=== PATIENT | female | born 1940 | race Caucasian/White ===

== ENCOUNTER 2016-09-08 05:15 | Day surgery (SDC) | payer MEDICARE ==
[~2016-09-08] VITALS: Ht 167.6 cm; Wt 104.5 kg
[2016-09-08] VITALS (7 sets, daily range): BP systolic 131–158; BP diastolic 50–79; Ht 167.6 cm; Wt 104.5 kg
[~2016-09-08 05:15] MED LIST: ASPIRIN325 MG PO; LIPITOR20 MG PO; TOPROL XL50 MG PO; ZOLOFT100 MG PO
[2016-09-08] MEDS ORDERED: PLAVIX75 MG PO (06:01)
[2016-09-08] MEDS ORDERED: COZAAR25 MG (06:03)
[2016-09-08] MEDS ORDERED: LOSARTAN POTASS25 MG (06:04)
[2016-09-08] MEDS ORDERED: LIPITOR40 MG PO (06:04)
[2016-09-08 06:33] LABS: HEMOGLOBIN 13.6 g/dL (12-16); MCHC 33.2 g/dL (31.0-37.0); MCV 90.5 fL (80.0-100.0); MEAN PLATELET VOLUME 10.4 fL (7.4-10.4); RBC 4.53 10x6/uL (4.00-5.40); RDW 13.5 % (11.5-14.5)
[2016-09-08 06:47] LABS: APTT 27.5 SECONDS (22.8-39.4); INR 0.98 (0.85-1.17); PROTIME 12.8 SECONDS (11.6-15.0)
[2016-09-08 07:06] LABS: ANION GAP 13.6 mmol/L (8-16); CARBON DIOXIDE 24.5 mmol/L (21.0-32.0); CREATININE - SERUM 0.8 mg/dL (0.6-1.3); POTASSIUM - SERUM 4.1 mmol/L (3.5-5.1)
[2016-09-08] MEDS ORDERED: MOBIC7.5 MG PO (08:35)
[2016-09-08] MEDS ORDERED: COZAAR50 MG PO (08:35)
[2016-09-08] MEDS ORDERED: VOLTAREN75 MG PO (08:36)
[2016-09-08] MEDS ORDERED: OXYBUTYNIN CHLOR5 MG PO (08:36)
--- NOTE | 2016-09-08 09:00 | NUR ---
RECIEVED FROM RR PER BED. IV TO RT WRIST. LT SHOULDER DRSG C/D. SLING TO LT ARM.CM SHOWES SR 1ST DEGREE AV BLOCK RATE 60.
--- NOTE | 2016-09-08 09:20 | NUR ---
DRESSING ON LEFT CHEST INTACT, NO BLEEDING NOTED.
--- NOTE | 2016-09-08 18:45 | NUR ---
WITHOUT CHANGES OR DISTRESS NOTED AT THIS TIME. DENIES NEEDS AT THISD TIME.
[2016-09-09 01:32] VITALS: BP 122/59
[2016-09-09 04:57] VITALS: BP 175/77
--- NOTE | 2016-09-09 07:54 | NUR ---
LT CHEST PACER DRSG C/D. SLING TO LT ARM. SL TO RT WRIST. CM SHOWS SR . ASSESSMENT DONE. DENIES NEEDS.
[2016-09-09 08:38] VITALS: BP 150/79
--- NOTE | 2016-09-09 11:31 | NUR ---
PATIENT SITTING UP IN BED WAITING FOR DISCHARGE.
--- NOTE | 2016-09-09 12:02 | NUR ---
DC GIVEN TO PT
[2016-09-09 12:25] VITALS: BP 159/69
--- NOTE | 2016-09-09 12:30 | NUR ---
DC HOME PER PERSONAL CAR
--- NOTE | 2016-09-11 12:20 | HP ---
PATIENT: BEN OTOOLE MEDICAL RECORD: [id number] ACCOUNT: [id number] LOCATION:D.OPS : 39 ADMISSION DATE: 09/08/16 HISTORY AND PHYSICAL EXAMINATION BEN Oreilly (76yo, F) ID# [id number]. Date/Time09/07/2016 10:29OKVIP79//1939Serplacentia-l[facility] hospit[facility] Dept.NP_[facility] ClinicProviderEDBEVERLEY CIFUENTES MDInsuranceMed Primary: [facility] (MEDICARE REPLACEMENT PPO) Insurance # : [id number] Policy/Group # : [id number] Referring Provider Name : DENNY GREWAL Employer Name : RETIRED Prescription: ORX - Member is eligible. Chief Complaint Followup: Sinus bradycardia Followup: Marked sinus arrhythmia referral from Dr Owens for PPM evaluation Patient's Care Team Referring Provider (): DENNY GREWAL: [address] [place] [phone], , Parboiler: MORGAN OWENS MD Patient's Pharmacies [facility] ([facility]): [address] [place] [phone], , Vitals BP:142/84 sitting R arm 09/07/2016 10:38 am 160/90 sitting L arm 09/07/2016 10:39 amBP Cuff Size:adult 09/07/2016 10:38 am adult 09/07/2016 10:39 amHR:68,reg 09/07/2016 10:39 amHt:5 ft 6 in 09/07/2016 10:45 amWt:30 lbs 09/07/2016 10:45 amNotes:HR has been as low as 37 on waking, last couple of weeks has been 50-60's 09/07/2016 10:40 amBMI:4.8 09/07/2016 10:45 amAllergies Reviewed Allergies CODEINENORVASCMedications Reviewed Medications atorvastatin 20 mg iqbcst24/08/15 filledPRESCRIPTION SOLUTIONSclopidogrel 75 mg wlrkdi52/08/16 filledPRESCRIPTION SOLUTIONSlosartan 100 mg tablet Take 1 tablet(s) every day by oral route.09/07/16 enteredKat Wilsonlosartan 50 mg rngwre71/07/16 filledPRESCRIPTION SOLUTIONSOneTouch Delica Lancets 33 gauge11/23/14 filledPRESCRIPTION SOLUTIONSOneTouch Ultra Test /09/17 filledPRESCRIPTION SOLUTIONSOneTouch Ultra2 kit11/09/14 filledPRESCRIPTION SOLUTIONSOneTouch UltraSoft Etpjtml55/19/15 filledPRESCRIPTION SOLUTIONSoxybutynin chloride 5 mg wzrdec60/20/16 filledPRESCRIPTION SOLUTIONSProblems Reviewed Problems Sinus bradycardia - Onset: 09/06/2016 Marked sinus arrhythmia - Onset: 09/06/2016 evaluate for PPM Family History Discussed Family History Father- Hypertensive disorder ( age: 49) - Cerebrovascular accidentMother- Hypertensive disorder - Malignant neoplastic disease ( age: 65)Brother- Coronary artery bypass graft - Diabetes mellitus - bypass sx; pacemaker - Diabetes mellitus - Diabetes mellitusPaternal Grandfather- HISTORY AND PHYSICAL [id number] BEN OTOOLE Cerebrovascular accidentSister- Diabetes mellitusSocial History Discussed Social History Cardiology Family history of heart disease?: Y Smoking Status: Former smoker (Notes: quit year 2004) High Cholesterol: Y High blood pressure: Y Exercise level: None Overweight: Y Obese: Y Diabetes: Y General stress level: High Alcohol intake: None Diet: Regular Surgical History Reviewed Surgical History Other cataract 2014 heart cath with LAD/Diag stents 08/01/14 partial hysterectomy 1986 breast reduction 1996 [employer]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) Obstetric History Reviewed Obstetric History Past Medical History Discussed Past Medical History Angina: Y Angioplasty (balloon): Y Blurred Vision: Y Chest Pain: Y Cold feet and legs: Y Diabetes: Y Dizzy Spells: Y Eye Problems: Y Heart Disease: Y Heart Rhythm Disorder: Y Hypertension: Y Irregular heart beat: Y Shortness of Breath: Y Swelling of Ankles, Feet or Hands: Y Valve disease: Y Hea dache: (no answer) - hyperlipidimia, coronary artery disease, bradycardia, malaise and fatigue, fluttering heart, dyspnea, chest pain, family with heart disease, leg cramps and weakness, generalized weakness, GERD, upper back pain, varicose veins, Kidney Disease: (no answer) - kidney/bladder problems Documents for Discussion N/A Screening None recorded. HPI HISTORY AND PHYSICAL [id number] BEN OTOOLE Palpitations Reported by patient. Quality: rapid and sustained; slow; irregular; skipping Severity: very limiting Onset/Timing: multiple times per day Context: exertional; at rest; occurs with stress Aggravating Factors: worse with activity; worse with emotional stress Associated Symptoms: dyspnea; exertional dyspnea; decline in exercise capacity; fatigue; irregular and slow arrhythmia noted by patient ROS Patient reports palpitations and light-headed on standing but reports no chest pain, no arm pain on exertion, no shortness of breath when walking, no shortness of breath when lying down, and no known heart murmur. She reports arthralgias/joint pain but reports no muscle aches, no muscle weakness, no back pain, and no swelling in the extremities. She reports no fever, no night sweats, no significant weight gain, no significant weight loss, and no exercise intolerance. She reports no dry eyes, no irri t ation, and no vision change. She reports no difficulty hearing and no ear pain. She reports no frequent nosebleeds and no nose/sinus problems. She reports no sore throat, no bleeding gums, no snoring, no dry mouth, no mouth ulcers, no oral abnormalities, a nd no teeth problems. She reports no jugular vein distension and no swollen glands. She reports no cough, no wheezing, no shortness of breath, and no coughing up blood. She reports no abdominal pain, no vomiting, normal appetite, no diarrhea, not vomiting blood, no nausea, and no constipation. She reports no incontinence, no difficulty urinating, no hematuria, and no increased frequency. She reports no abnormal mole, no jaundice, and no rashes. She reports no loss of consciousness, no weakness, no numbness , no seizures, no dizziness, and no headaches. She reports no depression, no sleep disturbances, feeling safe in relationship, and no alcohol abuse. She reports no fatigue. She reports no swollen glands and no bruising. She reports no runny nose, no sinus pressure, no itching, no hives, and no frequent sneezing. ROS as noted in the HPI Physical Exam Patient is a 76-year-old female. Constitutional: General Appearance healthy-appearing, well developed, and overweight. Level of Distress NAD. Ambulation ambulating normally. Cardiovascular: Apical Impulse not displaced or no thrill. Heart Auscultation normal s1 and s2; no murmurs, rubs, or gallops; and RRR and bradycardia. Arterial Pulses no abdominal aorta bruits, femoral bruits, or popliteal bruits and 2+ keri ateral, carotid 2+ bilateral, femoral 2+ bilateral, popliteal 2+ bilateral, and dorsalis pedis 2+ bilateral. Edema no edema or varicosities. Lungs: Repiratory Effort no dyspnea. Percussion no hyperresonance or dullness or flatness. Auscultation no wheezin g, rhonchi, or rales / crackles and breathing sounds normal, good air movement, and CTA except as noted. Abdomen: Bowl Sounds normal. Inspection and Palpation no tenderness, guarding, masses, or rebound tenderness and soft and non-distended. Liver non-tender and no hepatomegaly. Spleen non-tender and no splenomegaly. Hernia none palpable. Musculoskeletal System: Gait And Stance normal gait and stance. Digits and Nails normal nails and no cyanosis. Neurologic: Cranial Nerves grossly intact. Reflexes DTRs 2+ bilaterally throughout. HISTORY AND PHYSICAL [id number] CARRARA,BEN B Sensation grossly intact. Lymph Nodes: Lymph Nodes no cervical LAD, supraclavicular LAD, axillary LAD, or inguinal LAD. Eyes: Lids and Conjunctivae no discharge or pallor and non-injected. Pupils PERRLA. Cornea grossly intact. EOM EOMI. Lens clear. Sclera non-icteric. Neck: Neck no masses, enlarged lymph nodes, or carotid bruits and supple and trachea midline. Thyroid no enlargement or nodules and non-tender. Skin: Inspection and Palpation no rash, lesions, ulcers, jaundice, or abnormal nevi. Assessment / Plan sick sinus syndrome Symptomatic bradycardia Palpitations 1. Sick sinus syndrome I49.5: Sick sinus syndrome 2. Marked sinus arrhythmia I49.8: Other specified cardiac arrhythmias 3. Sinus bradycardia R00.1: Bradycardia, unspecified Discussion Notes agree with Dr. Owens the patient would benefit from a permanent dual chamber pacing system I have discussed her disease process with her in detail as well as the alternative methods of treatment. We discusse d permanent pacemaker insertion including the expected benefits and risk which included bleeding infection stroke and . There is also a chance pneumothorax. She understands all of the above and wishes to proceed with planned procedure Return to Office to see Stevie Cifuentes MD at [facility] on or around 09/08/2016 Stevie Cifuentes MD for Surgery at [facility]_SURGERY SCHEDULE on 09/08/2016 at 07:30 AM STEVIE CIFUENTES MD at 1220 CC: [id number] DICTATION DATE: 09/07/16 1200 MID LEVEL BUSINESS ANALYST: DM 09/07/16 1334 [facility] 09/09/16 [id number] [place] [address]
--- NOTE | 2016-09-11 12:20 | OP ---
PATIENT NAME: BEN OTOOLE MEDICAL RECORD: [id number] :38 [facility] DATE: SURGEON: VARINDER MARIE MD DATE OF OPERATION: 09/08/2016 SURGEON: Varinder Marie MD ANESTHESIA: General endotracheal, Dr. Adams. OPERATION PERFORMED: Dual chamber pacing system. PREOPERATIVE DIAGNOSIS: Sick sinus syndrome. POSTOPERATIVE DIAGNOSIS: Sick sinus syndrome. INDICATION FOR OPERATION: Sick sinus syndrome, symptomatic bradycardia. FINDINGS OF THE OPERATION: The pulse generator Medtronic Adapta ADDR01, serial number [id number]. Atrial lead: Medtronic model number 4574-45, serial number [id number]. Ventricular lead: Medtronic model number 4074-52, serial number [id number]. LEAD ANALYSIS: Atrial lead threshold 0.3 volts, current lead threshold 0.4 milliamps, resistance 676 ohms. P-wave 4.9, slew rate 2.0. Ventricular lead threshold 0.3 volts, current lead threshold 0.3 milliamps, resistance 1117 ohms, R-wave 14.1. ESTIMATED BLOOD LOSS: Less than 5 cc. DESCRIPTION OF PROCEDURE: After informed consent, adequate preoperative medication evaluation, the patient was brought to the operating room, placed on the table in the supine position. After induction of general anesthesia and application of appropriate monitoring devices, the left chest was prepped and draped in a sterile field, utilizing Betadine scrub, alcohol, and Betadine solution. Betadine-impregnated drape was also used, 1% lidocaine was infiltrated in the left subclavicular space. Incision made and dissection carried down the fascia. Hemostasis maintained with electrocautery. A pacemaker pocket was formed. Subclavian vein was cannulated with the introducers, leads placed in the heart. The above electrophysiologic study was done. The leads were felt to be in good position and the leads were secured. The leads were then connected to the pulse generator and pacemaker placed in the pocket. Pacemaker fired, captured and sensed appropriately. Pocket was irrigated. Instrument count and sponge count were correct times 2. Pocket was closed in layers utilizing 3-0 Vicryl on deep subcutaneous tissue, 5-0 subcuticular Monocryl on the skin. Sterile dressings were applied. The patient tolerated the procedure well and was transferred to postanesthesia recovery in satisfactory condition. TRANSINT:[id number] Voice Confirmation ID: [id number] DOCUMENT ID: [id number] OPERATIVE REPORT [id number] BEN OTOOLE EDWARD MD at 1220 CC: [id number] DICTATION DATE: 09/08/16 0858 DICE SPOTTER: 09/08/16 0919 [facility] 09/09/16 [place] [id number] [place] [id number]
== END 2016-09-09 12:31 | disposition home or self-care (01) ==
LOC: D.M2 05:15 → D.OPS 05:15 → D.M2 09:09 → D.OPS 09-09 12:31
PROVIDERS: Internal Medicine Cardiovascular Disease
DX: I49.5 Sick sinus syndrome (principal); Z87.891 Personal history of nicotine dependence; E66.9 Obesity, unspecified; E11.9 Type 2 diabetes mellitus without complications; E78.00 Pure hypercholesterolemia, unspecified; I10 Essential (primary) hypertension

== ENCOUNTER → 2016-11-03 16:50 | Outpatient (CLI) | payer MEDICARE ==
[2016-09-08 12:51] VITALS: BMI 37.2
[~2016-11-03 16:50] MED LIST changes: +COZAAR25 MG; +COZAAR50 MG PO; +LIPITOR40 MG PO; +LOSARTAN POTASS25 MG; +MOBIC7.5 MG PO; +OXYBUTYNIN CHLOR5 MG PO; +PLAVIX75 MG PO; +VOLTAREN75 MG PO
== END | disposition home or self-care (01) ==
LOC: D.MAMMO 09-07 10:15
DX: Z12.31 Encounter for screening mammogram for malignant neoplasm of breast (principal)

== ENCOUNTER → 2017-06-30 12:38 | Outpatient (CLI) | payer MEDICARE ==
[2016-09-08 12:51] VITALS: BMI 37.2
[2017-06-30 14:00] LABS: BASOPHILS 0.3 % (0-2); EOSINOPHILS 4.1 % (0-7); HEMATOCRIT 44.3 % (36.0-48.0); HEMOGLOBIN 14.7 g/dL (12-16); IMMATURE GRANULOCYTES 0.2 % (0-5); LYMPHOCYTES 35.8 % (15-50); MCH 30.6 pg (26.0-34.0); MCHC 33.2 g/dL (31.0-37.0); MCV 92.3 fL (80.0-100.0); MEAN PLATELET VOLUME 10.4 fL (7.4-10.4); MONOCYTES 10.8 % (2-11); NEUTROPHILS 48.8 % (40-80); RDW 13.6 % (11.5-14.5); WBC 10.1 10x3/uL (4.8-10.8)
[2017-06-30 14:06] LABS: PLATELET COUNT 355 10x3/uL (130-400)
[2017-06-30 14:10] LABS: HEMOGLOBIN A1C 6.4 % (4.8-6.0)
[2017-06-30 14:11] LABS: CALC OSMOLALITY 280 mosm/kg (275-300); CARBON DIOXIDE 24.9 mmol/L (21.0-32.0); CHLORIDE - SERUM 105 mmol/L (98-107); CREATININE - SERUM 0.7 mg/dL (0.6-1.3); GLUCOSE 118 mg/dL (74-106); POTASSIUM - SERUM 3.9 mmol/L (3.5-5.1); SODIUM 140 mmol/L (136-145); UREA NITROGEN 16 mg/dL (7-18); eGFR NON AFRICAN AMERICAN 86 mL/min (90-120)
[2017-06-30 14:28] LABS: APPEARANCE CLEAR (CLEAR); BILIRUBIN NEGATIVE (NEGATIVE); COLOR YELLOW (YELLOW); GLUCOSE NEGATIVE (NEGATIVE); KETONE NEGATIVE (NEGATIVE); NITRITE NEGATIVE (NEGATIVE); PROTEIN NEGATIVE (NEGATIVE); UROBILINOGEN NORMAL (NORMAL)
[2017-06-30 14:30] LABS: RED CELLS - URINE 0-5 /hpf (0-5)
[2017-06-30 14:31] LABS: BACTERIA MODERATE /hpf (NONE SEEN)
[2017-06-30 14:58] LABS: INR 0.86 (0.85-1.17); PROTIME 11.6 SECONDS (11.6-15.0)
== END | disposition home or self-care (01) ==
LOC: D.LAB 12:38
DX: R35.0 Frequency of micturition (principal); N32.81 Overactive bladder

== ENCOUNTER → 2017-11-02 11:00 | Outpatient (CLI) | payer MEDICARE ==
[~2017-11-02] VITALS: Ht 167.6 cm; Wt 111.4 kg
--- NOTE | ~2017-11-02 | HEMODYNAMI ---
PATIENT:BEN OTOOLE MEDICAL RECORD: [id number] : 38 LOCATION:ABIEL ADMISSION DATE: 11/02/17 Generatedon:11/02/201713:37 Patient name: BEN OTOOLE Patient #: [id number] SSN: : 1940 Date of study: 11/02/2017 Page: Of Hemodynamic Procedure Report Patient Data Patient Demographics Procedure consent was obtained First Name: BEN Gender: Female Last Name: SYDNIE : 1940 [facility] Initial: B Age: 77 year(s) Patient #: [id number] Race: Unknown Additional ID: [id number] Contact details Address: [facility] [address] State: [place] City: [place] Zip code: [address] Past Medical History Allergies Allergen Reaction Date Comments Reported Other allergy 11/02/2017 Alba Dumont Admission Admission Data Admission Date: 11/02/2017 Admission Time: 11:00 Height (in.): 66 BSA: 2.11 (m2) Height (cm.): 167.64 BMI: 36.8 (kg/m2) Weight (lbs.): 228 Weight (kg.): 103.42 Lab Results Lab Result Date: 11/02/2017 Lab Result Time: 11:45 Biochemistry Name Units Result Min Max BUN mg/dl 19 --(----)*- 7 18 Creatinine mg/dl 0.6 --(*---)-- 0.6 1.3 CBC Name Units Result Min Max Hematocrit % 45 --(*---)-- 42 54 Hemoglobin g/dl 15.3 --(-*--)-- 13.5 17.5 Procedure Procedure Types Cath Procedure Diagnostic Procedure Sedation Charges Moderate Sedation up to 15 minutes Moderate Sedation up to 30 minutes PCI Procedure Coronary Stent Coronary Stent Initial Procedure Description Procedure Date Procedure Date: 11/02/2017 Procedure Start Time: 13:09 Procedure End Time: 13:35 Procedure Staff Name Function Randolph Carrion MD Performing Physician Nicole ROBLES Monitor yN Messer RN Nurse Cynthia Obregon RT Scrub Procedure Data Cath Procedure Fluoroscopy Diagnostic fluoroscopy Total fluoroscopy Time: 6.5 time: 6.5 min min Diagnostic fluoroscopy Total fluoroscopy dose: 937 dose: 937 mGy mGy Contrast Material Contrast Material Type Amount (ml) Isovue 300 109 Entry Location Entry Primary Successful Side Size Upsize Upsize Entry Closure Succes sful Closure Location (Fr) 1 (Fr) 2 (Fr) Remarks Device Remarks Femoral Right 5 Fr 6 Fr Exoseal artery Short Estimated blood loss: 10 ml Diagnostic catheters Device Type Used For End Catheter Placement MULTIPACK JL 4.0 5Fr Procedure catheter MULTIPACK 3DRC 5Fr Procedure catheter MULTIPACK Pigtail 5 Fr Procedure catheter Procedure Complications No complications Procedure Medications Medication Administration Route Dosage Oxygen NC 2 l/min Lidocaine 2% added to field 20 Heparin Flush Bag added to field 2 bags (1000units/500ml NS) 0.9% NaCl I.V. 100 ml/hr Versed I.V. 1 mg Fentanyl I.V. 50 mcg Versed I.V. 1 mg Fentanyl I.V. 50 mcg Heparin Bolus I.V. 45155 units Versed I.V. 1 mg Plavix P.O. 75 mg Hemodynamics Rest BSA: 2.11 (m2) HGB: 15.3 (g/dl) O2 Consumption: Estimated: 188.02 (ml/min) O2 Co nsumption indexed: Estimated:89.11 (ml/min/m) Heart Rate: 67 (bpm) Pressure Samples Time Site Value (mmHg) Purpose Heart Use Rate(bpm) 13:17 LV 130/-1,20 Snapshot 60 Snapshots Pre Cath Intra NCS Post Cath Vital Signs Time Heart Resp SPO2 etCO2 NIBP (mmHg) Rhythm Pain Sedation Rate (ipm) (%) (mmHg) Status Level (bpm) 12:56:13 64 17 98 0 127/76(104) NSR 0 (11) 10(A) , No pain 13:00:33 92 18 96 0 125/70(102) NSR 0 (11) 10(A) , No pain 13:04:51 60 14 95 0 123/70(100) NSR 0 (11) 9(A) , No pain 13:09:10 59 16 96 0 128/64(104) NSR 0 (11) 9(A) , No pain 13:13:32 60 14 98 0 119/67(100) NSR 0 (11) 9(A) , No pain 13:17:48 59 14 99 0 132/67(102) NSR 0 (11) 9(A) , No pain 13:22:08 60 14 100 0 129/71(101) NSR 0 (11) 9(A) , No pain 13:26:28 60 15 100 0 125/64(101) NSR 0 (11) 9(A) , No pain 13:30:48 59 16 100 0 128/67(103) NSR 0 (11) 10(A) , No pain 13:35:06 60 16 100 0 122/71(103) NSR 0 (11) 10(A) , No pain Medications Time Medication Route Dose Verified Delivered Reason Notes Effectiveness by by 13:00:39 Oxygen NC 2 Randolph Buffie used for l/min Roman Messer RN procedure 13:00:48 Lidocaine 2% added 20ml Randolph Randolph for local to vial Roman Carrion MD anesthetic field 13:00:54 Heparin Flush added 2 bags Randolph Randolph used for Bag to Roman Carrion MD procedure (1000units/500ml field NS) 13:01:02 0.9% NaCl I.V. 100 Randolph Buffie Per physician ml/hr Roman Messer RN 13:01:24 Versed I.V. 1 mg Randolph Buffie for sedation Roman Messer RN 13:01:38 Fentanyl I.V. 50 mcg Randolph Buffie for sedation Roman Messer RN 13:07:33 Versed I.V. 1 mg Randolph Buffie for sedation Roman Messer RN 13:07:37 Fentanyl I.V. 50 mcg Randolph Buffie for sedation Roman Messer RN 13:23:38 Heparin Bolus I.V. 11,000 Randolph Buffie for verif ied units Roman Messer RN anticoagulation with dr carrion 13:27:34 Versed I.V. 1 mg Randolph Buffie for sedation Roman Messer RN 13:33:22 Plavix P.O. 75 mg Randolph Buffie for Roman Messer RN antiplatelet therapy Procedure Log Time Note 12:39:08 Patient Height : 66 inches 12:39:15 Patient Weight : 228 lbs 12:40:02 Diagnostic Cath status Elective 12:40:03 Ny Messer RN sent for patient. Start room use. 12:40:11 Time tracking: Regular hours 12:40:16 Plan of Care:Hemodynamics will remain stable., Cardiac rhythm will remain stable., Comfort level will be maintained., Respiratory function will remain adequate., Patient/ family verbilizes understanding of procedure., Procedure tolerated without complication., Recovers from procedure without complications.. 12:50:00 Patient received from Pre/Post Procedure Room to CCL 2 Alert and oriented. Tansferred to table in Supine position. 12:50:01 Warm blankets applied, and raffy hugger turned on for patient comfort. 12:50:01 Correct patient and procedure confirmed by team. 12:50:03 Signed procedure consent form obtained from patient. 12:50:05 ECG and BP/O2 sat monitors applied to patient. 12:55:09 Vital chart was started 12:55:11 Baseline sample Acquired. 12:55:14 Rhythm: sinus rhythm 12:55:17 Pre-procedure instructions explained to patient. 12:55:17 Pre-op teaching completed and patient verbalized understanding. 12:55:19 Family in waiting room. 12:55:20 Patient NPO since Midnight. 12:55:41 Patient allergic to Other allergyCodeine, Morvasc 12:55:46 Is the patient allergic to Iodine/contrast media? No. 12:55:47 Is patient on blood thinner?Yes 12:55:56 ACC The patient was administered the following blood thiners within the last 24 hours: ACCPlavix 12:56:57 Patient diabetic? No. 12:57:03 Previous problem with sedation/anesthesia? No ? 12:57:04 Snore? Yes 12:57:04 Sleep apnea? Yes 12:57:05 Deviated septum? No 12:57:06 Opens mouth fully? Yes 12:57:06 Sticks out tongue? Yes 12:57:08 Airway obstruction? No ? 12:57:12 Dentures? No ? 12:57:19 Pre procedure: right dorsailis pedis pulse 2+ Normal; easily identifiable; not easily obliterated 12:57:20 Patient pain scale 0/10 ?. 12:57:30 IV patent on arrival in left forearm with 0.9% NaCl at [facility]. 12:58:26 Lab Result : BUN 19 mg/dl 12:58:26 Lab Result : Creatinine 0.6 mg/dl 12:58:26 Lab Result : Hemoglobin 15.3 g/dl 12:58:26 Lab Result : Hematocrit 45 % 12:58:28 Lab results completed and on chart. 12:58:36 Right groin area was prepped with chlora-prep and draped in sterile fashion 12:58:42 Alarms reviewed by R. N. 12:58:42 Sharps counted by scrub and verified by R.N. 12:58:44 Use device set Femoral Dx 12:58:45 ACIST Syringe (49359) opened to sterile field. 12:58:46 Bag Decanter (2002S) opened to sterile field. 12:58:46 Medline Cath Pack ([id number]) opened to sterile field. 12:58:48 Tegaderm 4 x 4 (1626W) opened to sterile field. 12:58:48 ACIST Hand Control (87114) opened to sterile field. 12:58:49 ACIST Manifold (28964) opened to sterile field. 12:58:51 PERCUTANEOUS ENTRY 19GA needle opened to sterile field. 12:58:52 DIAGNOSTIC Multipack 5Fr catheter set (PX1345) opened to sterile field. 12:58:53 SHEATH 5FR [place] (MUS042) opened to sterile field. 12:58:54 DIAGNOSTIC WIRE .035 260cm J wire (174115) opened to sterile field. 12:59:02 Physician arrived 12:59:04 --------ALL STOP TIME OUT------ 12:59:05 Final Timeout: patient, procedure, and site verified with staff and physician. All members of the team are in agreement. 12:59:06 Right groin site verified by team. 12:59:08 Physical assessment completed. ASA score P 2 - A patient with mild systemic disease as per Randolph Carrion MD. 12:59:10 Sedation plan: IV Moderate Sedation Medication:Versed, Fentanyl 13:00:39 Oxygen 2 l/min NC was administered by Ny Messer RN; used for procedure; 13:00:48 Lidocaine 2% 20ml vial added to field was administered by Randolph Carrion MD; for local anesthetic; 13:00:54 Heparin Flush Bag (1000units/500ml NS) 2 bags added to field was administered by Randolph Carrion MD; used for procedure; 13:01:02 0.9% NaCl 100 ml/hr I.V. was administered by Ny Messer RN; Per physician; 13:01:24 Versed 1 mg I.V. was administered by Ny Messer RN; for sedation; 13::38 Fentanyl 50 mcg I.V. was administered by Ny Messer RN; for sedation; 13:07:33 Versed 1 mg I.V. was administered by Ny Messer RN; for sedation; 13:07:37 Fentanyl 50 mcg I.V. was administered by Ny Messer RN; for sedation; 13:08:39 Procedure started. 13:08:39 Full Disclosure recording started 13:09:00 Local anesthetic to right femoral artery with Lidocaine 2% by Randolph Carrion MD.INITIAL ACCESS ONLY 13:10:57 A 5 Fr sheath was inserted into the Right Femoral artery 13:12:11 A MULTIPACK JL 4.0 5Fr catheter was advanced over the wire and used for Procedure. 13:17:27 A MULTIPACK 3DRC 5Fr catheter was advanced over the wire and used for Procedure. 13:17:39 A MULTIPACK Pigtail 5 Fr catheter was advanced over the wire and used for Procedure. 13:18:13 EF : 60 % 13:19:01 Catheter removed. 13:19:15 Proceeding to intervention. 13:19:21 SHEATH 6FR [place] (XOY459) opened to sterile field. 13:19:21 INFLATOR Merit BasixCompak (VV4142) opened to sterile field. 13:19:22 TUBING High Pressure Extension Tubing (Roman) ([id number]) opened to sterile field. 13:19:22 GUIDE 6FR XBLAD 3.5 catheter ([id number]) opened to sterile field. 13:19:42 Sheath upsized to a 6 Fr Short. 13:20:00 6 Fr XBLAD 3.5 guide catheter was inserted over the wire 13:21:06 BMW 300cm Straight [place] 2 wire (0836330) opened to sterile field. 13:21:16 BMW wire advanced. 13:23:38 Heparin Bolus 11,000 units I.V. was administered by Ny Messer RN; for anticoagulation; verified with dr carrion 13:27:34 Versed 1 mg I.V. was administered by Ny Messer RN; for sedation; 13:29:36 Inflation Number: 1 A GERRY OTW 2.5 x 12 stent ([id number]) was prepped and advanced across the Mid LAD. The stent was deployed at 14 BARAK for 0:22 (min:sec). 13:30:32 Inflation number: 2 The stent balloon was then re-inflated across the Mid LAD to 16 BARAK for 0:16 (min:sec). 13:31:16 EXOSEAL 6Fr (EX600) opened to sterile field. 13:31:25 Wire removed. 13:31:26 Stent catheter was removed intact over wire. 13:31:27 Guide catheter removed. 13:31:38 Sheath removed intact; hemostasis achieved with Exoseal to the Right Femoral artery. 13:33:22 Plavix 75 mg P.O. was administered by Ny Messer RN; for antiplatelet therapy; 13:33:22 Procedure ended.(Physican Out) 13:33:32 Fluoroscopy time 06.50 minutes. 13:33:37 Fluoroscopy dose: 937 mGy 13:33:37 Flurop Dose total: 937 13:33:41 Contrast amount:Isovue 300 109ml. 13:33:42 Sharps counted by scrub and verified by R.N. 13:33:44 Insertion/operative site no bleeding no hematoma. 13:33:49 Post right femoral artery:stable 13:33:51 Post Procedure Pulses reassessed and unchanged 13:33:54 Post-procedure physical assessment completed. ASA score P 2 - A patient with mild systemic disease as per Randolph Carrion MD. 13:33:57 Post procedure rhythm: sinus rhythm 13:34:01 Estimated blood loss: 10 ml 13:34:03 Post procedure instruction explained to patient.Patient verbalizes understanding. 13:34:34 Procedure type changed to Cath procedure, Diagnostic procedure, Sedation Charges, Moderate Sedation up to 15 minutes, Moderate Sedation up to 30 minutes, PCI procedure, Coronary Stent, Coronary Stent Initial 13:34:36 Procedure and supply charges have been captured, reviewed, submitted and are correct. 13:35:10 Procedure Complication : No complications 13:35:12 Vital chart was stopped 13:35:15 See physician's report for complete and final results. 13:35:20 Patient transfered to Pre/Post Procedure Room with Stretcher. 13:35:23 Procedure ended. 13:35:23 Full Disclosure recording stopped 13:35:27 End room use (Document Last) Intervention Summary Intervention Notes Time ActionType Lesion and Equipment Action# Pressure Duration Attributes Used 13:29:36 Place stent Mid LAD GERRY OTW 2.5 1 14 00:22 x 12 stent ([id number]) 13:30:32 Reinflate Mid LAD GERRY OTW 2.5 2 16 00:16 stent x 12 stent balloon ([id number]) Device Usage Item Name Manufacture Quantity Catalog Hospital Part Current Minim al Lot# / Number Charge Number Stock Stock Serial# Code ACIST Syringe Acist 1 65640 875717 890068 767477 20 (58928) Medical Systems Inc Bag Decanter Microtek 1 2001S 206128 40817 750734 5 (2001S) Medical Inc. Medline Cath Cardinal 1 [id number] 984354 78474 873216 5 Pack Health ([id number]) Tegaderm 4 x 3M 1 1626W 066521 145019 160078 5 4 (1626W) ACIST Hand Acist 1 31357 879842 374308 416619 5 Control Medical (17614) Systems Inc ACIST Acist 1 35372 289330 626809 583372 5 Manifold Medical (20014) Systems Inc PERCUTANEOUS Cook Medical 1 I67018 779803 515619 5 ENTRY 19GA needle DIAGNOSTIC Cardinal 1 WM2528 904075 68961 976185 30 Multipack 5Fr Health catheter set (PF6256) SHEATH 5FR Terumo 1 QWI932 694142 017052 911592 40 [place] (BCK161) DIAGNOSTIC St Bert 1 864855 376804 156362 067127 30 WIRE .035 260cm J wire (357133) MULTIPACK JL Cardinal 1 092104 5 4.0 5Fr Health catheter MULTIPACK Cardinal 1 852013 5 3DRC 5Fr Health catheter MULTIPACK Cardinal 1 652471 5 Pigtail 5 Fr Health catheter SHEATH 6FR Terumo 1 IRF735 371138 288266 917909 40 [place] (DWT047) INFLATOR Merit 1 UA2720 768360 077689 657703 15 [facility] Medical BasixCompak (CS6411) TUBING High Merit 1 [id number] 520869 53520 707228 10 Pressure Medical Extension Tubing (Carrion) (AS8884Q) GUIDE 6FR Cardinal 1 [id number] 929371 121396 663796 10 XBLAD 3.5 Health catheter (65913132) BMW 300cm Jim 1 3331714 413330 589086 298163 5 Straight Vascular [place] 2 wire (1807771) GERRY OTW 2.5 Medtronic 1 [id number] 306470 05049 176675 5 [id number] x 12 stent ([id number]) EXOSEAL 6Fr Cardinal 1 EX600 436373 487120 219974 10 (EX600) TrustRadius Signature Audit Schurz Stage Time Signature Unsigned Intra-Procedure 11/02/2017 Nicole Tucker 1:37:41 PM RT(R) Signatures Monitor : Nicole Tucker Signature : RT Date : Time : [place] [address] [place] [address]
[~2017-11-02 11:00] MED LIST changes: +BYSTOLIC10 MG PO; +HYDROCHLOROTH12.5 M1 PO; +KRILL OIL 1,001 EAC1 PO; +NEURONTIN 300300 MG PO; +VITAMIN D3400 UNI1 PO
[2017-11-02 11:44] VITALS: BP 148/71; Ht 167.6 cm; Wt 111.4 kg
[2017-11-02 12:04] LABS: CALC OSMOLALITY 276 mosm/kg (275-300); CALCIUM 9.4 mg/dL (8.5-10.1); CARBON DIOXIDE 25.2 mmol/L (21.0-32.0); CHLORIDE - SERUM 103 mmol/L (98-107); CREATININE - SERUM 0.6 mg/dL (0.6-1.3); GLUCOSE 87 mg/dL (74-106); POTASSIUM - SERUM 4.6 mmol/L (3.5-5.1); SODIUM 138 mmol/L (136-145); UREA NITROGEN 19 mg/dL (7-18); eGFR NON AFRICAN AMERICAN > 90 mL/min (90-120)
[2017-11-02 12:09] LABS: BASOPHILS 0.5 % (0-2); EOSINOPHILS 7.2 % (0-7); HEMOGLOBIN 15.3 g/dL (12-16); IMMATURE GRANULOCYTES 0.1 % (0-5); LYMPHOCYTES 34.5 % (15-50); MCH 31.4 pg (26.0-34.0); MCV 92.4 fL (80.0-100.0); MEAN PLATELET VOLUME 10.2 fL (7.4-10.4); MONOCYTES 10.4 % (2-11); NEUTROPHILS 47.3 % (40-80); PLATELET COUNT 339 10x3/uL (130-400); RBC 4.87 10x6/uL (4.00-5.40); RDW 13.3 % (11.5-14.5); WBC 10.2 10x3/uL (4.8-10.8)
== END | disposition home or self-care (01) ==
LOC: D.CATH 10-26 13:00
PROVIDERS: Internal Medicine Cardiovascular Disease
DX: I25.10 Atherosclerotic heart disease of native coronary artery without angina pectoris (principal); R06.02 Shortness of breath; I10 Essential (primary) hypertension; Z01.812 Encounter for preprocedural laboratory examination; E78.5 Hyperlipidemia, unspecified
CPT/HCPCS: 93458; C9600

== ENCOUNTER 2018-03-03 15:30 | Outpatient (CLI) | payer MEDICARE ==
[2017-11-02 11:44] VITALS: BMI 39.6
== END 2018-03-03 15:45 ==
LOC: D.MAMMO 15:30
DX: Z12.31 Encounter for screening mammogram for malignant neoplasm of breast (principal)

== ENCOUNTER 2019-04-09 08:00 | Outpatient (CLI) | payer OTHER ==
[2017-11-02 11:44] VITALS: BMI 39.6
== END 2019-04-09 23:59 | disposition home or self-care (01) ==
LOC: D.MAMMO 08:00
PROVIDERS: ATTEND Family Medicine
DX: Z12.31 Encounter for screening mammogram for malignant neoplasm of breast (principal)

== ENCOUNTER → 2019-07-02 18:21 | Outpatient (CLI) | payer OTHER ==
[2017-11-02 11:44] VITALS: BMI 39.6
== END | disposition home or self-care (01) ==
LOC: D.LABREF 18:21
PROVIDERS: ATTEND Urology
DX: N39.0 Urinary tract infection, site not specified (principal)

== ENCOUNTER → 2019-08-01 17:17 | Outpatient (CLI) | payer OTHER ==
[2017-11-02 11:44] VITALS: BMI 39.6
== END | disposition home or self-care (01) ==
LOC: D.LABREF 17:17
PROVIDERS: ATTEND Urology
DX: N39.0 Urinary tract infection, site not specified (principal)

== ENCOUNTER 2019-09-06 06:13 | Day surgery (SDC) | payer OTHER ==
[2019-09-05 09:18] LABS: BASOPHILS 0.2 % (0-2); EOSINOPHILS 1.8 % (0-7); HEMATOCRIT 44.4 % (36.0-48.0); HEMOGLOBIN 14.6 g/dL (12-16); IMMATURE GRANULOCYTES 0.3 % (0-5); LYMPHOCYTES 20.2 % (15-50); MCH 30.4 pg (26.0-34.0); MCHC 32.9 g/dL (31.0-37.0); MCV 92.5 fL (80.0-100.0); MEAN PLATELET VOLUME 9.4 fL (7.4-10.4); MONOCYTES 14.7 % (2-11); NEUTROPHILS 62.8 % (40-80); PLATELET COUNT 324 10x3/uL (130-400); RDW 13.6 % (11.5-14.5); WBC 11.5 10x3/uL (4.8-10.8)
[2019-09-05 09:20] LABS: ANION GAP 10.3 mmol/L (8-16); CARBON DIOXIDE 30.7 mmol/L (21.0-32.0); CREATININE - SERUM 0.9 mg/dL (0.6-1.3)
[~2019-09-06] VITALS: Ht 167.6 cm; Wt 93.9 kg
[2019-09-06 06:48] VITALS: BP 144/70; Ht 167.6 cm; Wt 93.9 kg
--- NOTE | 2019-09-06 12:53 | NUR ---
1220-ASSISTED TO TOILET TO VOID FREELY.
--- NOTE | 2019-09-06 13:24 | NUR ---
1250-COMPANY WITH STIMULATOR LEFT ROOM. SITTING ON SIDE OF BED FINISHING TRAY. VERY PLEASANT DENIES PAIN. DRESSING TO BACK CDI
--- NOTE | 2019-09-06 13:25 | NUR ---
1300- REMOVED IV FROM LEFT HAND WITH CATH INTACT,DISPOSED INTO SHARPS. COVERED SITE WITH GUAZE,SECURED WITH MEDIPORE TAPE. VSS.DENIES PAIN.
--- NOTE | 2019-09-06 13:26 | NUR ---
1311-PT DRESSED. REVIEWED POST OPERATIVE INSTRUCTIONS AND FOLLOW UP.VERBALIZED UNDERSTANDING.DENIES PAIN,DRESSING CDI
--- NOTE | 2019-09-06 13:27 | NUR ---
1314-ESCORTED OUT VIA W/C WITH DAUGHTER AWAITING TO DRIVE HOME.
--- NOTE | 2019-09-06 17:01 | OP ---
PATIENT NAME: BEN OTOOLE MEDICAL RECORD: [id number] :38 LOCATION:D.OPS ADMISSION DATE: SURGEON: BARB RICHEY MD DATE OF OPERATION: 09/06/2019 SURGEON: Barb Richey MD ANESTHESIA: TIVA by Unique Mckenzie CRNA DIAGNOSES: 1. Urethral stricture. 2. Urge urinary incontinence. 3. Fecal incontinence. 4. Nonfunctional InterStim pacemaker and lead. PROCEDURES: 1. Urethral stricture dilation. 2. Removal of InterStim pacemaker and electrode. 3. Axonics Stage I on the left S3 nerve root. FINDINGS: The old InterStim lead was in the right S4 nerve root. Best responses are found on the left S3 nerve root. SPECIMENS: InterStim pacemaker and lead. ESTIMATED BLOOD LOSS: None. CLINICAL HISTORY: This is an 79-year-old female who has frequent urinary tract infections with Escherichia coli extended-spectrum beta-lactamase positive. She has urge urinary incontinence and fecal incontinence. A while ago, she had an InterStim device placed by another urologist to try to control the incontinence. She had a peripheral nerve evaluation, which was successful; however, when the permanent pacemaker and lead was placed, the device has never worked properly for her. I suspect that the lead is the wrong location and it is not an S3. The plan is to remove the InterStim device and start over with an Axonics stage I. SHE IS ALLERGIC TO NORVASC, CODEINE, MACROBID AND SULFA. She was given Ancef consolidator to the OR. DESCRIPTION OF PROCEDURE: The patient was given IV sedation. She was placed into prone position and prepped and draped. The old InterStim pacemaker site is in the region of the right iliac crest. The incision was reopened after infiltrating the area with 1% lidocaine with epinephrine. The pacemaker device was then removed out of the incision. By tugging on the attached lead, I could see the dimpling in the skin where the lead went into the sacral foramen. The small stab incision was made here and a hemostat was used to pull the tined electrode out from the sacral foramen. The electrode was cut proximal to the tined portion and the electrode was completely removed by pulling the pacemaker out. The pacemaker and electrode were sent to pathology for identification. Under fluoroscopy, the level of the S3 foramen was identified. It was apparent that the location of the previous Medtronic InterStim pacemaker lead was actually in the S4 foramen. The role of sacral foramen was also identified and marked out on the skin using a marking pen. The skin overlying the S2 foramen was infiltrated with local anesthetic. Sacral spinal needles were then introduced into the S3 foramen on both sides. The S3 nerve root on the left side was far more sensitive and we decided to use that. A small incision was OPERATIVE REPORT [id number] BEN OTOLOE made at the skin, at the base of the needle. The stylet of the needle was removed and an extra-long stylet was introduced. The needle was then removed, leaving the extra-long stylet in place. The trocar dilator was then placed down. There was a radiopaque marker on the tip of the sheath. This radiopaque marker was placed at the skilled nursing level between the sacral bones. The extra-long stylet and trocar was then removed, leaving the sheath in place. Through the sheath, we introduced the 4 channel permanent electrode. There was a curve on the proximal end of this electrode and this curve was aimed laterally. Each of the channels was then tested in turn electrically. Channel 0 is not having any biological effect. Channels 1-3; however, had excellent responses. I then marked out 4 cm distal to the iliac crest region on the right side. This resulted in a point that was at some distance from the original Medtronic InterStim pacemaker pocket. A 1 cm transverse incision was made here. The tunneling device was used to bring the free end of the permanent electrode into this area. Here the free end of the permanent electrode was attached to the proximal end of the temporary test electrode. The connection was made using a torque-limiting screwdriver to tighten down the connecting screw. The tunneling device was then used to bring the distal end of the temporary electrode out through an exit site near the midpoint of the sacrum. The wounds were then irrigated out. A 1 cm incision that I made in the right iliac crest region was closed using a running subcuticular suture of 4-0 Monocryl. The small incisions near the sacrum were closed using simple interrupted 4-0 Monocryl. The longer incision for the pacemaker of the Medtronic device was closed using nickolas. Dressings were applied. I will see the patient in followup next week to check on her symptoms. TRANSINT:[id number] Voice Confirmation ID: [id number] DOCUMENT ID: [id number] BARB RICHEY MD at 1701 CC: [id number] DICTATION DATE: 09/06/19 1229 ELECTRICAL CHECKOUT MECHANIC: 09/06/19 1626 [facility] 09/06/19 [place] [id number]
== END 2019-09-06 13:14 | disposition home or self-care (01) ==
LOC: D.OPS 06:13 → D.PAN 08:15 → D.OPS 08:20 → D.PAN 08:20 → D.OPS 09:00
PROVIDERS: Anesthesiology; ATTEND Urology
DX: N35.92 Unspecified urethral stricture, female (principal); N39.41 Urge incontinence; R15.2 Fecal urgency; Z95.0 Presence of cardiac pacemaker; N30.00 Acute cystitis without hematuria; T83.110A Breakdown (mechanical) of urinary electronic stimulator device, initial encounter; I10 Essential (primary) hypertension; I25.119 Atherosclerotic heart disease of native coronary artery with unspecified angina pectoris; I49.8 Other specified cardiac arrhythmias; R06.00 Dyspnea, unspecified

== ENCOUNTER → 2019-09-10 23:55 | Outpatient (CLI) | payer OTHER ==
[2019-09-06 06:48] VITALS: BMI 33.4
[~2019-09-10 23:55] MED LIST changes: +HYDROCODON-ACET15 ML PO; +LEVOFLOXACIN500 MG PO
== END | disposition home or self-care (01) ==
LOC: D.LABREF 23:55
PROVIDERS: ATTEND Urology
DX: R82.90 Unspecified abnormal findings in urine (principal)

== ENCOUNTER 2019-09-13 07:14 | Day surgery (SDC) | payer OTHER ==
[~2019-09-13] VITALS: Ht 167.6 cm; Wt 93.9 kg
[2019-09-13 07:38] LABS: BASOPHILS 0.3 % (0-2); EOSINOPHILS 4.6 % (0-7); HEMATOCRIT 40.4 % (36.0-48.0); HEMOGLOBIN 13.5 g/dL (12-16); IMMATURE GRANULOCYTES 0.3 % (0-5); LYMPHOCYTES 23.2 % (15-50); MCHC 33.4 g/dL (31.0-37.0); MCV 92.9 fL (80.0-100.0); MEAN PLATELET VOLUME 8.7 fL (7.4-10.4); NEUTROPHILS 57.6 % (40-80); RBC 4.35 10x6/uL (4.00-5.40); RDW 13.2 % (11.5-14.5); WBC 9.9 10x3/uL (4.8-10.8)
[2019-09-13 07:46] LABS: PLATELET COUNT 484 10x3/uL (130-400)
[2019-09-13 07:48] LABS: ANION GAP 10.2 mmol/L (8-16); CALCIUM 9.1 mg/dL (8.5-10.1); CREATININE - SERUM 0.9 mg/dL (0.6-1.3); POTASSIUM - SERUM 4.2 mmol/L (3.5-5.1)
[2019-09-13 08:22] VITALS: BP 105/61; Ht 167.6 cm; Wt 93.9 kg
--- NOTE | 2019-09-13 10:00 | NUR ---
0939-REC'D FROM SURGERY. AWAKE AND ALERT,DENIES PAIN.VSS.DRESSING TO BACK CDI. REVIEWED DISCHARGE CRITERIA. VERBALIZED UNDERSTANDING
--- NOTE | 2019-09-13 10:01 | NUR ---
0945-FULL LIQUID TRAY TO ROOM. CL IN EASY REACH. FAMILY AT BEDSIDE. STIMULATOR COMPANY GENTLEMEN IN ROOM
--- NOTE | 2019-09-13 10:20 | NUR ---
1008-AXONICS GENTLEMEN LEFT ROOM. STILL EATING FOOD TRAY.VSS.DENIES PAIN.
--- NOTE | 2019-09-13 10:21 | NUR ---
1018-REMOVED IV WITH CATH INTACT,DISPOSED INTO SHARPS,COVERED SITE WITH GUAZE,SECURED WITH MEDIPORE TAPE. REVIEWED POST OPERATIVE INSTRUCTIONS. VERBALIZED UNDERSTANDING.
--- NOTE | 2019-09-13 10:43 | NUR ---
1025-PT DRESSED AND READY TO GO. ESCORTED OUT VIA W/C BY VOLUNTEER WITH DAUGHTER AWAITING TO DRIVE HOME.
--- NOTE | 2019-09-13 12:29 | OP ---
PATIENT NAME: BEN OTOOLE MEDICAL RECORD: [id number] :38 LOCATION:D.[facility] ADMISSION DATE: SURGEON: BENTLEY RICHEY MD DATE OF OPERATION: 09/13/2019 SURGEON: Bentley Richey MD ANESTHESIA: TIVA by Jacobo Ibrahim CRNA. DIAGNOSES: Urge urinary incontinence, fecal incontinence, recurrent urinary tract infections. PROCEDURE: Axonics stage II. ESTIMATED BLOOD LOSS: None. CLINICAL HISTORY: This is an 79-year-old female with recurrent urinary tract infections with Escherichia coli extended-spectrum beta-lactamase positive. She has issues with urge urinary incontinence and fecal incontinence, which predisposed her to infection. She had an InterStim device placed by another urologist. This device did not work. I discovered that it was placed in the wrong nerve root. When it was removed, it was found to be at the S4 nerve root. She had an Axonics stage I trial in the S3 nerve root on the left side. She had great success with this. She no longer has any episodes of incontinence. She comes now to have the stage II or permanent implant produced. SHE IS ALLERGIC TO CODEINE, MACROBID, NORVASC, AND SULFA. She was given Ancef sexual assault response coordinator to the OR. DESCRIPTION OF PROCEDURE: The patient was given IV sedation. She was placed into a prone position on the OR table. She was prepped and draped. The old incision was reopened in the right iliac crest region. The electrode was fished out of the incision. The connection between the temporary lead and the permanent electrode was disrupted by loosening the connecting screw. The temporary test inspection engineer was then removed entirely. The pacemaker had the connection to the permanent electrode made by tightening down a locking screw using a torque-limiting screwdriver. A pocket was then made lateral to the incision using the blade of an Algolytics retractor. The pacemaker was inserted, so that the ceramic window faces laterally. The wound was then irrigated out with saline. A 2-layer closure was performed. The first layer with 4-0 Vicryl to reapproximate the subcutaneous fat. Then, a running subcuticular suture of 4-0 Monocryl closed the skin incision. Steri-Strips were then applied as well as a Band-Aid. I will see the patient next week to check on the wound healing. TRANSINT:[id number] Voice Confirmation ID: [id number] DOCUMENT ID: [id number] BENTLEY RICHEY MD at 1229 CC: [id number] DICTATION DATE: 09/13/1945 ORACLE SOA CONSULTANT: 09/13/19 1224 [facility] 09/13/19 [place] [id number] [place] [id number]
== END 2019-09-13 10:25 | disposition home or self-care (01) ==
LOC: D.OPS 07:14
PROVIDERS: Anesthesiology; ATTEND Urology
DX: N39.41 Urge incontinence (principal); R15.9 Full incontinence of feces; N39.0 Urinary tract infection, site not specified

== ENCOUNTER 2020-03-12 12:04 | Outpatient (CLI) | payer OTHER ==
[~2020-03-12] VITALS: Ht 167.6 cm; Wt 97.7 kg
--- NOTE | ~2020-03-12 | HEMODYNAMI ---
PATIENT:BEN OTOOLE MEDICAL RECORD: [id number] : 38 LOCATION:[facility] ADMISSION DATE: 03/12/20 Generatedon:03/12/202014:00 Patient name: BEN OTOOLE Patient #: [id number] SSN: : 1940 Date of study: 03/12/2020 Page: Of Hemodynamic Procedure Report Patient Data Patient Demographics Procedure consent was obtained First Name: BEN Gender: Female Last Name: SYDNIE : 1940 [facility] Initial: B Age: 79 year(s) Patient #: [id number] Race: Unknown Additional ID: [id number] Contact details Address: [address] [place] [address] street State: [place] [facility] [place]: [address] Past Medical History Allergies Allergen Reaction Date Comments Reported Other allergy 11/02/2017 Codeine, Morvasc Other allergy 03/12/2020 CODEINE, NITROFURANTOIN, NORVASC, SULFA Admission Admission Data Admission Date: 03/12/2020 Admission Time: 12:04 Arrival Date: 03/12/2020 Arrival Time: 0:00 Height (in.): 66 BSA: 2.07 (m2) Height (cm.): 167.64 BMI: 34.87 (kg/m2) Weight (lbs.): 216.05 Weight (kg.): 98 Lab Results Lab Result Date: 03/12/2020 Lab Result Time: 0:00 Biochemistry Name Units Result Min Max BUN mg/dl 24 --(----)-* 7 18 Creatinine mg/dl 0.9 --(-*--)-- 0.6 1.3 eGFR ml/min 64.04450 *-(----)-- 90 120 NONAFRICAN Procedure Procedure Types Cath Procedure Diagnostic Procedure LHC LHC w/Coronaries Sedation Charges Moderate Sedation up to 15 minutes Procedure Description Procedure Date Procedure Date: 03/12/2020 Procedure Start Time: 13:41 Procedure End Time: 13:56 Procedure Staff Name Function Randolph Owens MD Performing Physician Dolores Griffith RT Scrub Ny Messer RN Nurse Cynthia Obregon RT Monitor Procedure Data Cath Procedure Fluoroscopy Diagnostic fluoroscopy Total fluoroscopy Time: 1.6 time: 1.6 min min Diagnostic fluoroscopy Total fluoroscopy dose: 562 dose: 562 mGy mGy Contrast Material Contrast Material Type Amount (ml) Isovue 300 52 Entry Location Entry Primary Successful Side Size Upsize Upsize Entry Closure Succes sful Closure Location (Fr) 1 (Fr) 2 (Fr) Remarks Device Remarks Femoral Right 5 Fr Exoseal artery Estimated blood loss: 5 ml Diagnostic catheters Device Type Used For End Catheter Placement MULTIPACK JL 4.0 5Fr Left Coronary catheter Angiography MULTIPACK 3DRC 5Fr Right Coronary catheter Angiography MULTIPACK Pigtail 5 Fr LV Angiography catheter Procedure Complications No complications Procedure Medications Medication Administration Route Dosage Oxygen etCO2 Nasal cannula 2 l/min Lidocaine 2% added to field 20 Heparin Flush Bag added to field 2 bags (1000units/500ml NS) 0.9% NaCl I.V. 100 ml/hr Versed I.V. 1 mg Fentanyl I.V. 50 mcg Versed I.V. 1 mg Fentanyl I.V. 50 mcg Versed I.V. 1 mg Hemodynamics Rest BSA: 2.07 (m2) O2 Consumption: Estimated: 186.87 (ml/min) O2 Consumption indexed : Estimated:90.28 (ml/min/m) Heart Rate: 71 (bpm) Pressure Samples Time Site Value (mmHg) Purpose Heart Use Rate(bpm) 13:52 LV 122/0,14 Snapshot 49 Gradients Valve Time Site Site Mean SEP/DFP Peak To Heart Use 1 2 (mmHg) (sec/min) Peak Rate (mmHg) (bpm) Aortic 13:53 LV AO 61 Snapshots Pre Cath Intra NCS Post Cath Vital Signs Time Heart Resp SPO2 etCO2 NIBP (mmHg) Rhythm Pain Sedation Rate (ipm) (%) (mmHg) Status Level (bpm) 13:25:23 60 20 99 26.9 140/74(113) NSR 0 (11) 10(A) , No pain 13:29:47 60 21 100 30.7 126/67(112) NSR 0 (11) 10(A) , No pain 13:34:03 60 19 99 32.9 123/69(103) NSR 0 (11) 10(A) , No pain 13:38:21 60 16 100 33.7 116/59(93) NSR 0 (11) 10(A) , No pain 13:42:39 60 13 97 32.9 109/57(86) NSR 0 (11) 9(A) , No pain 13:46:51 60 11 97 27.7 127/64(93) NSR 0 (11) 9(A) , No pain 13:51:07 61 12 94 23.9 108/63(85) NSR 0 (11) 9(A) , No pain 13:55:17 60 14 98 29.9 126/66(99) NSR 0 (11) 10(A) , No pain Medications Time Medication Route Dose Verified Delivered Reason Notes Eff ectiveness by by 13:27:59 Oxygen etCO2 2 Randolph Buffie used for Nasal l/min Roman Messer RN procedure cannula 13:28:05 Lidocaine 2% added 20ml Randolph Randolph for local to vial Roman Owens MD anesthetic field 13:28:11 Heparin Flush added 2 Randolph Randolph used for Bag to bags Roman Owens MD procedure (1000units/500ml field NS) 13:28:19 0.9% NaCl I.V. 100 Randolph Buffie Per ml/hr Roman Messer RN physician 13:32:08 Versed I.V. 1 mg Randolph Buffie for Roman Messer RN sedation 13:32:14 Fentanyl I.V. 50 Randolph Buffie for anthony Messer RN sedation 13:40:22 Versed I.V. 1 mg Randolph Buffie for Roman Messer RN sedation 13:40:25 Fentanyl I.V. 50 Randolph Buffie for mcg Roman Messer RN sedation 13:46:24 Versed I.V. 1 mg Randolph Buffie for Roman Messer RN sedation Procedure Log Time Note 13:08:03 Informed consent obtained and on chart 13:08:38 Procedure Status Elective Heart Cath (OP). 13:08:39 Time tracking: Regular hours (M-F 7:00 - 5:00) 13:08:47 Plan of Care:Hemodynamics will remain stable., Cardiac rhythm will remain stable., Comfort level will be maintained., Respiratory function will remain adequate., Patient/ family verbilizes understanding of procedure., Procedure tolerated without complication., Recovers from procedure without complications.. 13:08:53 H&P Date Dictated: 02/21/2020 Within 30 days and on chart., H&P Addendum completed by physician on day of procedure. (MUST COMPLETE FOR ALL OUTPATIENTS). 13:09:13 Patient allergic to Other allergyCODEINE, NITROFURANTOIN, NORVASC, SULFA 13:09:37 Patient Weight : 216.05 lbs 13:09:46 Patient Height : 66 inches 13:09:52 Arrival Date: 03/12/2020 12:00:00 AM 13:15:18 Dolores Griffith RT(R) sent for patient. Start room use. 13:18:55 Patient received from Pre/Post Procedure Room to CCL 2 Alert and oriented. Tansferred to table in Supine position. 13:18:58 Warm blankets applied, and raffy hugger turned on for patient comfort. 13:18:59 Correct patient and procedure confirmed by team. 13:18:59 ECG and BP/O2 sat monitors applied to patient. 13:19:04 Pre-procedure instructions explained to patient. 13:19:04 Pre-op teaching completed and patient verbalized understanding. 13:19:06 Family in waiting room. 13:19:07 Patient NPO since Midnight. 13:19:09 Is the patient allergic to Iodine/contrast media? No. 13:19:21 Sleep apnea? Yes 13:19:26 ACC The patient was administered the following blood thiners within the last 24 hours: ACCPlavix 13:19:29 Is patient on blood thinner?Yes 13:19:31 Was the patient premedicated? No 13:19:32 Patient diabetic? No. 13:19:35 If diabetic: On Metformin? N/A 13:19:40 Patient not . Patient is over age 55. 13:19:41 ----Pre-sedation anethsthesia assessment.---- 13:19:44 Previous problem with sedation/anesthesia? No ] 13:19:47 Snore? Unknown 13:19:49 Deviated septum? No 13:19:50 Opens mouth fully? Yes 13:19:51 Sticks out tongue? Yes 13:19:53 Airway obstruction? No ? 13:19:56 Dentures? No ? 13:20:05 Pre procedure: right dorsailis pedis pulse 2+ Normal; easily identifiable; not easily obliterated 13:20:08 Patient pain scale 0/10 ?. 13:20:16 IV patent on arrival in left antecubital with 0.9% NaCl at [facility]. 13:20:20 Lab results completed and on chart. 13::59 Lab Result : BUN 24 mg/dl 13::59 Lab Result : Creatinine 0.9 mg/dl ::59 Lab Result : eGFR NONAFRICAN 64.17723 ml/min 13:24:11 Full Disclosure recording started 13:24:11 Vital chart was started 13:24:29 Stress Test: no; N/A ? 13:24:32 Right groin area was prepped with chlora-prep and draped in sterile fashion 13:24:33 Alarms reviewed by R. N. 13:24:33 Sharps counted by scrub and verified by R.N. 13:24:38 Baseline sample Acquired. 13:24:42 Rhythm: sinus bradycardia 13:24:46 Use device set Femoral Dx 13:24:47 ACIST Syringe (10005) opened to sterile field. 13:24:47 Bag Decanter (2002S) opened to sterile field. 13:24:48 Medline Cath Pack ([id number]) opened to sterile field. 13:24:49 ACIST Hand Control (07780) opened to sterile field. 13:24:50 ACIST Manifold (10293) opened to sterile field. 13:24:50 DIAGNOSTIC Multipack 5Fr catheter set (SN4961) opened to sterile field. 13:24:51 SHEATH 5FR Polaris (KFP768) opened to sterile field. 13:24:52 EMERALD Guide Wire (839-784) opened to sterile field. 13:27:59 Oxygen 2 l/min etCO2 Nasal cannula was administered by Ny Messer RN; used for procedure; Verbal order read back and verified. 13:28:05 Lidocaine 2% 20ml vial added to field was administered by Randolph Owens MD; for local anesthetic; Verbal order read back and verified. 13:28:11 Heparin Flush Bag (1000units/500ml NS) 2 bags added to field was administered by Randolph Owens MD; used for procedure; Verbal order read back and verified. 13:28:19 0.9% NaCl 100 ml/hr I.V. was administered by Ny Messer RN; Per physician; Verbal order read back and verified. ::43 --------ALL STOP TIME OUT------ ::43 Final Timeout: patient, procedure, and site verified with staff and physician. All members of the team are in agreement. 13:31:45 Right groin site verified by team. 13:31:49 Fire Safety Assessment: A--An alcohol-based skin anteseptic being used preoperatively., C--Open oxygen or nitrous oxide is being used., D--An ESU, laser, or fiber-optic light is being used. 13:31:52 Physical assessment completed. ASA score P 2 - A patient with mild systemic disease as per Randolph Owens MD. 13:32:05 2) 60-89 Mildly reduced kidney function, and other findings (as for stage 1) point to kidney disease. 13:32:08 Versed 1 mg I.V. was administered by Ny Messer RN; for sedation; Verbal order read back and verified. 13:32:09 Maximum allowable contrast dose (3.7 X eGFR X 0.75)178 ml. 13:32:13 Sedation plan: IV Moderate Sedation Medication:Versed, Fentanyl 13:32:14 Fentanyl 50 mcg I.V. was administered by Ny Messer RN; for sedation; Verbal order read back and verified. 13:40:22 Versed 1 mg I.V. was administered by Ny Messer RN; for sedation; Verbal order read back and verified. 13:40:25 Fentanyl 50 mcg I.V. was administered by Ny Messer RN; for sedation; Verbal order read back and verified. 13:40:37 Procedure started. 13:41:31 Local anesthetic to right femoral artery with Lidocaine 2% by Randolph Owens MD.INITIAL ACCESS ONLY 13:46:24 Versed 1 mg I.V. was administered by Ny Messer RN; for sedation; Verbal order read back and verified. 13:47:03 A 5 Fr sheath was inserted into the Right Femoral artery 13:47:11 A MULTIPACK JL 4.0 5Fr catheter was advanced over the wire and used for Left Coronary Angiography. 13:47:15 LCA angiography performed. 13:47:18 Injector settings: Ml/sec: 3, Volume: 6, 13:48:04 Catheter removed. 13:49:50 A MULTIPACK 3DRC 5Fr catheter was advanced over the wire and used for Right Coronary Angiography. 13:50:56 RCA angiography performed. 13:50:59 Injector settings: Ml/sec: 3, Volume: 6, 13:51:08 Catheter removed. 13:51:14 A MULTIPACK Pigtail 5 Fr catheter was advanced over the wire and used for LV Angiography. 13:52:18 LV hemodynamics recorded. 13:52:19 LV gram done using WHITMORE 13:52:21 Injector settings: Ml/sec: 5, Volume: 15, 13:52:29 EF : 55 % 13:53:07 Catheter removed. 13:53:11 EXOSEAL 5Fr (EX500) opened to sterile field. 13:53:25 Sheath removed intact; hemostasis achieved with Exoseal to the Right Femoral artery. 13:53:27 Procedure ended.(Physican Out) 13:54:34 Fluoroscopy time 01.60 minutes. 13:54:48 Fluoroscopy dose: 562 mGy 13:54:48 Flurop Dose total: 562 13:55:01 Dose Area Product 87294 mGy/cm. 13:55:05 Contrast amount:Isovue 300 52ml. 13:55:17 Maximum allowable dose exceeded? No. 13:55:18 Sharps counted by scrub and verified by R.N. 13:55:20 Insertion/operative site no bleeding no hematoma. 13:55:23 Post-op/insertion site Right Femoral artery dressed using a 4 x 4 and Tegaderm. 13:55:31 Post right femoral artery:stable 13:55:49 Post Procedure Pulses reassessed and unchanged 13:55:52 Post procedure rhythm: unchanged. 13:55:55 Estimated blood loss: 5 ml 13:55:57 Post procedure instruction explained to patient.Patient verbalizes understanding. 13:55:58 Patient needs reinforcement of post procedure teaching. 13:56:30 Procedure type changed to Cath procedure, Diagnostic procedure, LHC, LHC w/Coronaries, Sedation Charges, Moderate Sedation up to 15 minutes 13:56:31 Procedure and supply charges have been captured, reviewed, submitted and are correct. 13:56:36 Procedure Complication : No complications 13:56:38 Vital chart was stopped 13:56:43 [facility] Findings: mild to moderate CAD (<70%) 13:56:45 Operative report dictated upon procedure completion. 13:56:46 See physician's report for complete and final results. 13:56:51 Report given to Pre/Post Procedure Room. 13:56:54 Patient transfered to Pre/Post Procedure Room with Stretcher. 13:56:56 Procedure ended. 13:56:56 Full Disclosure recording stopped 13:57:04 End room use (Document Last) 13:59:38 End room use (Document Last) Device Usage Item Name Manufacture Quantity Catalog Hospital Part Current Minimal L ot# / Number Charge Number Stock Stock Serial# Code ACIST Acist 1 82318 [id number] [id number] 20 Syringe Medical (31318) Systems Inc Bag Microtek 1 668639 42777 701511 5 Decanter Medical Inc. () Medline Medline 1 [id number] 641714 04725 048869 5 Cath Pack ([id number]) ACIST Hand Acist 1 35677 895926 050054 245722 5 Control Medical (97437) Systems Inc ACIST Acist 1 10513 252589 443826 472675 5 Manifold Medical (03451) Systems Inc DIAGNOSTIC Cardinal 1 WC1955 006767 23549 739362 30 Multipack Health 5Fr catheter set (EL5618) SHEATH 5FR Terumo 1 ONP441 314996 522403 391152 5 Polaris (UNL385) EMERALD Cardinal 1 502-455 252206 681576 528441 5 Guide Wire Health (502455) MULTIPACK Cardinal 1 149267 5 JL 4.0 5Fr Health catheter MULTIPACK Cardinal 1 778449 5 3DRC 5Fr Health catheter MULTIPACK Cardinal 1 347074 5 Pigtail 5 Health Fr catheter EXOSEAL 5Fr Cardinal 1 EX500 278732 642838 185449 10 (EX500) Health Signature Audit [place] Stage Time Signature Unsigned Intra-Procedure 03/12/2020 Cynthia Obregon 2:00:12 PM RT(R) Intra-Procedure 03/12/2020 Ny Messer RN 2:00:33 PM Intra-Procedure 03/12/2020 Randolph Owens MD 2:00:53 PM Signatures Performing Physician : Signature : Randolph Owens MD Date : Time : Nurse : Buffie Messer RN Signature : Date : Time : Monitor : Cynthia Sabas RT Signature : Date : Time : [address] [place] [address]
[2020-03-12] MEDS ORDERED: BISOPROLOL FUMAR5 MG PO (12:30)
[2020-03-12] MEDS ORDERED: PLAVIX75 MG PO (12:31)
[2020-03-12] MEDS ORDERED: NITROSTAT0.4 MG SL (12:32)
[2020-03-12] MEDS ORDERED: LUNESTA1 MG PO (12:32)
[2020-03-12 12:41] VITALS: BP 140/78; Ht 167.6 cm; Wt 97.7 kg
[2020-03-12 13:06] LABS: ANION GAP 12.1 mmol/L (8-16); CALCIUM 9.5 mg/dL (8.5-10.1); CHOL - HDL RATIO 5.4 ratio (2.3-4.1); CREATININE - SERUM 0.9 mg/dL (0.6-1.3); LDL-HDL RATIO 3.8 ratio (1.5-3.5); POTASSIUM - SERUM 4.1 mmol/L (3.5-5.1)
[2020-03-12 13:24] LABS: HEMATOCRIT 46.8 % (36.0-48.0); HEMOGLOBIN 15.4 g/dL (12-16); LYMPHOCYTES 39.3 % (15-50); MCH 29.8 pg (26.0-34.0); MCHC 32.9 g/dL (31.0-37.0); MCV 90.5 fL (80.0-100.0); MEAN PLATELET VOLUME 9.4 fL (7.4-10.4); NEUTROPHILS 45.7 % (40-80); RBC 5.17 10x6/uL (4.00-5.40); RDW 13.2 % (11.5-14.5); WBC 8.3 10x3/uL (4.8-10.8)
[2020-03-12 13:26] LABS: PLATELET COUNT 331 10x3/uL (130-400)
--- NOTE | 2020-03-12 14:09 | NUR ---
PT ARRIVED BY STRETCHER. PLACED ON MONITORS. ASSESSMENT COMPLETED. VSS AT THIS TIME. CALL LIGHT WITHIN REACH. FAMILY AT BEDSIDE.
--- NOTE | 2020-03-12 14:25 | NUR ---
RIGHT GROIN DRESSING C/D/I. NO S/S OF HEMATOMA NOTED. CALL LIGHT WITHIN REACH. VSS AT THIS TIME. FAMILY AT BEDSIDE.
--- NOTE | 2020-03-12 15:00 | NUR ---
RIGHT GROIN DRESSING C/D/I. NO S/S OF HEMATOMA NOTED. CALL LIGHT WITHING REACH. FAMILY AT BEDSIDE. HEAD OF BED INC TO 30 DEGREES. TOLERATED WELL. SET UP WITH SANDWICH TRAY AND DRINK. DENIES NAUSEA/PAIN AT THIS TIME. VSS.
--- NOTE | 2020-03-12 15:37 | NUR ---
RIGHT GROIN DRESSING C/D/I. NO S/S OF HEMATOMA NOTED. VSS AT THIS TIME. PIV D/C'D WITH CATH TIP INTACT. TOLERATED WELL. PT INSTRUCTED TO GET UP AND DRESSED AT THIS TIME.
--- NOTE | 2020-03-12 15:50 | NUR ---
PT AMBULATED TO RESTROOM. VOIDED WITHOUT DIFFICULTY. STEADY GAIT NOTED.
--- NOTE | 2020-03-12 15:55 | NUR ---
DISCUSSED DISCHAGE INSTRUCTIONS WITH PT. SHE VOICED UNDERSTANDING. RIGHT GROIN DRESSING C/D/I. NO S/S OF HEMATOMA NOTED.
--- NOTE | 2020-03-12 16:00 | NUR ---
PT TAKEN DOWN TO VEHICLE BY WHEELCHAIR. NO S/S OF DISTRESS NOTED. ALL BELONGINGS AND PAPERWORK IN HAND.
== END 2020-03-12 16:00 | disposition home or self-care (01) ==
LOC: D.CATH 12:04
PROVIDERS: ATTEND Internal Medicine Cardiovascular Disease
DX: I20.0 Unstable angina (principal); E78.5 Hyperlipidemia, unspecified; I10 Essential (primary) hypertension; E11.9 Type 2 diabetes mellitus without complications; Z95.0 Presence of cardiac pacemaker; G47.00 Insomnia, unspecified

== ENCOUNTER → 2020-12-15 18:25 | Outpatient (CLI) | payer OTHER ==
[2020-03-12 12:41] VITALS: BMI 34.7
[~2020-12-15 18:25] MED LIST changes: +BISOPROLOL FUMAR5 MG PO; +LUNESTA1 MG PO; +NITROSTAT0.4 MG SL
[2020-12-15 19:24] LABS: BASOPHILS 0.4 % (0-2); EOSINOPHILS 5.6 % (0-7); HEMOGLOBIN 15.2 g/dL (12-16); IMMATURE GRANULOCYTES 0.1 % (0-5); LYMPHOCYTE ABS# 2.99 10x3/uL (1.18-3.74); MCH 29.8 pg (26.0-34.0); MCHC 32.3 g/dL (31.0-37.0); MCV 92.2 fL (80.0-100.0); MEAN PLATELET VOLUME 10.4 fL (7.4-10.4); MONOCYTES 12.8 % (2-11); NEUTROPHIL ABS# 4.83 10x3/uL (1.56-6.13); NEUTROPHILS 50.1 % (40-80); PLATELET COUNT 333 10x3/uL (130-400); RDW 13.3 % (11.5-14.5); WBC 9.6 10x3/uL (4.8-10.8)
[2020-12-15 19:50] LABS: ANION GAP 16.1 mmol/L (8-16); CALCIUM 9.5 mg/dL (8.5-10.1); CARBON DIOXIDE 26.8 mmol/L (21.0-32.0); CREATININE - SERUM 0.8 mg/dL (0.6-1.3); POTASSIUM - SERUM 4.9 mmol/L (3.5-5.1); THYROID STIMULATING HORMONE 1.75 uIU/mL (0.36-3.74)
== END | disposition home or self-care (01) ==
LOC: D.LABREF 18:25
PROVIDERS: ATTEND Internal Medicine Cardiovascular Disease
DX: I25.10 Atherosclerotic heart disease of native coronary artery without angina pectoris (principal); R06.00 Dyspnea, unspecified; I10 Essential (primary) hypertension